=== PATIENT | female | born 1970 | race Caucasian/White ===

== ENCOUNTER 2024-01-22 22:25 | Emergency (ER) | payer OTHER ==
[~2024-01-22] VITALS: Ht 165.1 cm; Wt 112.3 kg
[2024-01-22 22:52] VITALS: PULSE 108
[2024-01-22 23:08] LABS: BILIRUBIN,URINE SMALL (Neg); CLARITY,URINE CLOUDY (Clear); COLOR,URINE YELLOW (Yellow); GLUCOSE, URINE NEGATIVE (Neg); KETONES,URINE TRACE mg/dl (Neg); LEUKOCYTE ESTERASE ,URINE NEGATIVE (Neg); NITRITES, URINE NEGATIVE (Neg); OCCULT BLOOD,URINE NEGATIVE (Neg); PH,URINE 5.5 (4.8-8.0); PROTEIN,URINE >=300 mg/dl (Neg)
[2024-01-22 23:09] LABS: URINE HCG NEGATIVE (NEG)
[2024-01-22 23:15] LABS: BASOPHILS # (AUTO) 0.1 X10'3 (0-0.2); BASOPHILS % (AUTO) 0.5 % (0-1); EOSINOPHILS # (AUTO) 0.7 X10'3 (0-0.9); EOSINOPHILS % (AUTO) 5.9 % (0-6); HEMATOCRIT 39.7 % (35.0-45.0); HEMOGLOBIN 13.4 g/dl (12.0-16.0); LYMPHOCYTES % (AUTO) 18.2 % (21-51); MEAN CORPUSCULAR HEMOGLOBIN 29.8 PG (27.0-31.0); MEAN CORPUSCULAR HGB CONC 33.7 g/dL (33.0-36.5); MEAN CORPUSCULAR VOLUME 88.6 FL (78-98); MEAN PLATELET VOLUME 7.7 FL (7.4-10.4); MONOCYTES # (AUTO) 1.4 X10'3 (0-0.9); MONOCYTES % (AUTO) 13.1 % (2-12); NEUTROPHILS # (AUTO) 6.9 X10'3 (1.8-7.7); NEUTROPHILS % (AUTO) 62.3 % (42-75); PLATELET COUNT 277 X10'3 (140-440); RED BLOOD COUNT 4.48 X10'6 (4.20-5.60); RED CELL DISTRIBUTION WIDTH 13.4 % (11.5-14.5)
[2024-01-22 23:16] LABS: ALANINE AMINOTRANSFERASE 558 U/L (12-78); ALBUMIN 3.4 G/DL (3.4-5.0); ALBUMIN/GLOBULIN RATIO 0.9 (1.1-1.5); ALKALINE PHOSPHATASE 98 IU/L (46-116); ANION GAP 10 (8-16); ASPARTATE AMINO TRANSFERASE 227 U/L (10-37); BLOOD UREA NITROGEN 21 MG/DL (7-18); BUN/CREATININE RATIO 10.8 (10.0-20.0); CALCIUM 8.9 MG/DL (8.5-10.1); CHLORIDE 97 MMOL/L (99-107); CREATININE 1.94 MG/DL (0.40-0.90); GLUCOSE 132 MG/DL (70-104); LIPASE 13 U/L (16-77); POTASSIUM 3.1 MMOL/L (3.5-5.1); SODIUM 135 MMOL/L (135-145); TOTAL CARBON DIOXIDE 28.5 MMOL/L (24-32); TOTAL PROTEIN 7.4 G/DL (6.4-8.2); eCRCL 30 ML/MIN; eGFR 27 ML/MIN
[2024-01-22] MEDS: ondansetron/PF 4mg/2ml inj IV ONE (23:18)
[2024-01-22] MEDS: normal saline 1000ml 1,000 ML IV ONE (23:19)
[2024-01-22 23:22] LABS: UA COLLECTION TYPE NON-SPECIFIED
[2024-01-22 23:25] LABS: SQUAMOUS EPITHELIAL CELL,UR MANY /LPF (FEW)
[2024-01-22 23:29] LABS: RBC,URINE 0-2 /HPF (0-2)
[2024-01-22 23:35] LABS: BACTERIA,URINE 1+ /HPF (Neg)
[2024-01-22 23:36] LABS: AMORPHOUS URATES 1+
[2024-01-22] MEDS ORDERED: normal saline 1000ml 1,000 ML IV ONE (23:50)
[2024-01-22] MEDS: sulfamethoxazole/trimethoprim DS (800/160mg) tablet PO ONE (23:51)
[2024-01-22] MEDS: morphine 4 MG/ML inj SYRINge IV ONE (23:59)
[2024-01-23] MEDS: ondansetron/PF 4mg/2ml inj IV ONE (00:34)
[2024-01-23] MEDS: normal saline 1000ml 1,000 ML IV ONE (01:04)
[2024-01-23] MEDS ORDERED: CEFD300C3 PO (01:54)
[2024-01-23] MEDS ORDERED: ONDA-243 PO (01:55)
[2024-01-23] MEDS: CefTRIAXone/D5W-Rocephin 1gm 50 ML IV ONE (02:03)
[2024-01-23 02:49] VITALS: BP 124/78; RESP 15; TEMP 99.8; O2SAT 100
== END 2024-01-23 02:52 | disposition home or self-care (01) ==
LOC: ER 22:26
DX: N39.0 Urinary tract infection, site not specified (principal); R11.10 Vomiting, unspecified; R10.13 Epigastric pain; R10.11 Right upper quadrant pain; Z88.8 Allergy status to other drugs, medicaments and biological substances
CPT/HCPCS: 36415; 74176; 80053; 81001; 81025; 83690; 85025; 87088; 96361; 96374; 96375; 96376; 99285; J0696; J2270; J2405; J7030